=== PATIENT | female | born 1980 | race Native Hawaiian/Other Pacific Islander ===

== ENCOUNTER 2021-03-21 15:14 | Outpatient (CLI) | payer BC | END 2021-03-21 19:27 | disposition home or self-care (01) | LOC: US 15:14 | PROVIDERS: ATTEND Nurse Practitioner Family | DX: M79.661 Pain in right lower leg (principal) ==

== ENCOUNTER 2021-10-03 09:22 | Outpatient (CLI) | payer BC | END 2021-10-03 18:50 | disposition home or self-care (01) | LOC: CT 09:22 | PROVIDERS: ATTEND Nurse Practitioner Family | DX: R10.32 Left lower quadrant pain (principal) ==